=== PATIENT | female | born 1970 | race Caucasian/White ===

== ENCOUNTER 2018-07-13 07:15 | Emergency (ER) | payer BC ==
--- NOTE | 2018-07-13 07:34 | EDM.PDOC ---
ED HPI GENERAL MEDICAL PROBLEM - General Stated Complaint: MIGRAINE Time Seen by Provider: 07/13/18 07:21 Source of Information: Reports: Patient History Limitations: Reports: No Limitations - History of Present Illness INITIAL COMMENTS - FREE TEXT/NARRATIVE: Patient presents with headache that started at 0500 today. She says it is the worst headache she has ever had and wonders if it is a migraine although she hasn't had migraines. It is frontal across forehead; she rates it 5/10. She took an Ibuprofen and Tylenol at home without relief. She is also anxious about this because her sister has a brain aneurysm diagnosed a few weeks ago. - Related Data Allergies Allergy/AdvReac Type Severity Reaction Status Date / Time Beta-Blockers Allergy Respiratory Verified 07/13/18 07:23 (Beta-Adrenergic Bloc Depression Penicillins Allergy Rash Verified 07/13/18 07:23 Home Meds: Home Meds LORazepam [Ativan] 0.5 mg PO Q8H PRN 09/07/13 [History] metFORMIN [Glucophage] 500 mg PO BID 09/07/13 [History] Fish Oil/[place]-3 Fatty Acids [Fish Oil 1,000 MG] 2 tab PO DAILY 08/07/15 [ History] Hydrocodone/Acetaminophen [Hydrocodon-Acetaminophen 5-325] 1 each PO Q6H PRN 11/15 [History] Meclizine [Antivert] 25 mg PO TID PRN 08/07/15 [History] Polyethylene Glycol 3350 [MiraLAX] 17 gm PO DAILY 08/07/15 [History] Sennosides [Senna] 8.6 mg PO DAILY PRN 08/07/15 [History] Vitamin B Complex Vit C No.4 [Super B Complex] 150 mg PO DAILY 08/07/15 [History ] Ascorbic Acid [Vitamin C] 1,000 mg PO DAILY 08/11/15 [History] Loratadine 10 mg PO DAILY 08/11/15 [History] Past Medical History Musculoskeletal History: Reports: Osteoarthritis - Past Surgical History Musculoskeletal Surgical History: Reports: Arthroscopic Knee Social & Family History - Caffeine Use Caffeine Use: Reports: Soda, Tea - Living Situation & Occupation Living situation: Reports: with Significant Other Occupation: Employed ED ROS GENERAL - Review of Systems Review Of Systems: See Below Constitutional: Denies: Fever, Chills, Malaise, Weakness HEENT: Denies: Ear Pain, Throat Pain, Throat Swelling, Vision Change Respiratory: Denies: Shortness of Breath, Cough Cardiovascular: Reports: Lightheadedness. Denies: Chest Pain, Syncope GI/Abdominal: Denies: Abdominal Pain, Diarrhea, Nausea, Vomiting : Reports: No Symptoms Musculoskeletal: Denies: Neck Pain, Shoulder Pain, Arm Pain, Back Pain, Hand Pain, Leg Pain, Foot Pain Skin: Denies: Cyanosis, Jaundice, Mottled, Pallor, Diaphoresis Neurological: Reports: Headache. Denies: Confusion, Dizziness, Seizure, Syncope (felt faint though), Trouble Speaking, Weakness Psychiatric: Reports: Anxiety. Denies: Agitation, Confusion Hematologic/Lymphatic: Denies: Anemia, Easy Bleeding - Physical Exam Exam: See Below Exam Limited By: No Limitations General Appearance: Alert, WD/WN, No Apparent Distress Eye Exam: Bilateral Eye: EOMI, Normal Inspection (full visual reyes), PERRL Ears: Normal External Exam, Hearing Grossly Normal Nose: Normal Inspection, No Blood Throat/Mouth: Normal Inspection, Normal Lips, Normal Voice, No Airway Compromise Head Exam: Atraumatic, Normocephalic Neck: Normal Inspection, Full Range of Motion Respiratory/Chest: No Respiratory Distress, Lungs Clear, Normal Breath Sounds, No Accessory Muscle Use Cardiovascular: Normal Peripheral Pulses, Regular Rate, Rhythm, No Murmur GI/Abdominal: No Distention Neuro Exam (Abbreviated): Alert, Oriented, CN II-XII Intact, Normal Cognition, No Motor/Sensory Deficits Back Exam: Normal Inspection, Full Range of Motion Extremities: Normal Inspection, Normal Range of Motion, No Pedal Edema Psychiatric: Normal Affect, Normal Mood Skin Exam: Warm, Dry, Intact, Normal Color, No Rash Course - Orders/Labs/Meds Orders: Active Orders 24 hr Category Date Time Status Head wo Cont [CT] Stat Exams 07/13/18 07:22 Ordered - Re-Assessments/Exams Free Text/Narrative Re-Assessment/Exam: 07/13/18 08:[address] is negative. Pain is down to 2/10 and patient feels ready to go home. Discussed findings and plan. 07/13/18 08:58 Recheck of blood pressure shows it is still moderately elevated. Discussed this with patient and she will follow up with Dr. Braun on this along with recheck on headache/migraine. Pt discharged to home in stable condition. Departure - Departure Time of Disposition: 08:50 Disposition: Home, Self-Care 01 Condition: Good Clinical Impression: Headache above the eye region - Discharge Information Instructions: General Headache Without Cause, [id number], Migraine Headache Additional Instructions: 1. Drink 8 cups of water daily. 2. Try to get some good rest today. 3. Follow up with Dr. Braun next week. 4. Return to ER as needed. - My Orders Last 24 Hours: My Active Orders 07/13/18 07:22 Head wo Cont [CT] Stat - Assessment/Plan Last 24 Hours: My Active Orders 07/13/18 07:22 Head wo Cont [CT] Stat
[2018-07-13] MEDS ORDERED: Sodium Chloride 0.9% 1,000 ML IV ONE (07:58)
[2018-07-13] MEDS ORDERED: diphenhydrAMINE 50 MG/ML SDV IVPUSH ONE (07:58)
[2018-07-13] MEDS ORDERED: Ketorolac 30 MG/ML SDV IVPUSH ONE (07:58)
[2018-07-13] MEDS ORDERED: Metoclopramide 10 MG/2 ML SDV IVPUSH ONE (07:58)
--- NOTE | 2018-07-13 08:01 | CT ---
[id number] CT/CT Head WO IV EXAM: CT Head WO IV CLINICAL DATA: HEADACHE. COMPARISON STUDY: None FINDINGS: No intracranial hemorrhage, extra-axial fluid collection, mass, or acute ischemia. No hydrocephalus. Paranasal sinuses and mastoid air cells are clear. IMPRESSION: Negative examination of the brain. Guero Johansen MD 07/13/18 0800 Thank you for allowing us to participate in the care of your patient.
[2018-07-13 09:00] VITALS: BP 173/89
== END 2018-07-13 09:15 | disposition home or self-care (01) ==
LOC: KA.ED 07:15
DX: R51 Headache (principal); Z88.0 Allergy status to penicillin; Z79.84 Long term (current) use of oral hypoglycemic drugs; Z79.899 Other long term (current) drug therapy
CPT/HCPCS: 70450; 96361; 96374; 96375; 99284; J1200; J1885; J2765; J7030

== ENCOUNTER 2024-06-20 07:10 | Emergency (ER) | payer BC ==
[2024-06-20] MEDS: Cyclobenzaprine 10 MG Tab PO ONE (07:56)
[2024-06-20] MEDS: Ketorolac 30 MG/ML SDV IVPUSH ONE (07:57)
[2024-06-20] MEDS: HYDROmorphone 1 MG/ML Syringe IVPUSH ONE (08:31)
[2024-06-20 08:49] VITALS: BP 108/65; PULSE 75
== END 2024-06-20 08:45 | disposition home or self-care (01) ==
LOC: KA.ED 07:10
DX: M54.50 Low back pain, unspecified (principal); Z88.0 Allergy status to penicillin; Z88.8 Allergy status to other drugs, medicaments and biological substances; Z79.84 Long term (current) use of oral hypoglycemic drugs; Z79.899 Other long term (current) drug therapy; W00.9XXA Unspecified fall due to ice and snow, initial encounter
CPT/HCPCS: 72100; 96374; 96375; 99283-25; A9270-GY; J1171; J1885